=== PATIENT | female | born 1960 | race Caucasian/White ===

== ENCOUNTER 2019-08-07 08:12 | Emergency (ER) | payer OTHER, SELFPAY ==
[~2019-08-07] VITALS: Ht 157.5 cm; Wt 85.3 kg
[2019-08-07 08:26] VITALS: Ht 157.5 cm; Wt 85.3 kg
[2019-08-07 09:57] LABS: T3 TOTAL 0.98 ng/mL
[2019-08-07 10:02] LABS: FREE T4 0.77 ng/dL (0.76-1.46); FREE THYROXINE INDEX 2.1 ug/dL (1.4-4.5); T4(THYROXINE) 6.4 ug/dL (4.7-13.3)
[2019-08-07 10:20] LABS: BASOPHIL % 0.6 % (0-2); PLATELET COUNT 222 x10^3mcL (130-400)
[2019-08-07 10:26] LABS: RED CELL DISTRIBUTION WIDTH 14.7 % (11.5-14.5)
[2019-08-07 10:38] LABS: CALCIUM 8.9 mg/dL (8.5-10.1); CARBON DIOXIDE 24.7 mmol/L (21-32); CHLORIDE SERUM 108 mmol/L (98-107); CREATININE SERUM 0.8 mg/dL (0.6-1.0); GFR1 > 60 mL/min; GLUCOSE SERUM 111 mg/dL (74-106); POTASSIUM SERUM 3.8 mmol/L (3.5-5.1); SODIUM SERUM 144 mmol/L (136-145)
[2019-08-07 10:42] LABS: ALBUMIN 3.6 g/dL (3.4-5.0); ALKALINE PHOSPHATASE 93 U/L (46-116); ALT/SGPT 22 U/L (14-59); AST/SGOT 17 U/L (15-37); BILIRUBIN TOTAL 0.32 mg/dL (0.20-1.00); HDL CHOLESTEROL 35 mg/dL (40-60); LIPASE 116 IU/L (73-393); TOTAL PROTEIN, SERUM 7.1 g/dL (6.4-8.2); TRIGLYCERIDES 113 mg/dL (<150)
[2019-08-07 10:48] LABS: CHOLESTEROL 133 mg/dL (<200); CHOLESTEROL/HDL RATIO 3.8
[2019-08-07 10:53] VITALS: BP 124/77
== END 2019-08-07 10:53 | disposition home or self-care (01) ==
LOC: ED 08:12
PROVIDERS: Specialist
DX: R07.89 Other chest pain (principal); E03.9 Hypothyroidism, unspecified; G89.29 Other chronic pain; H92.01 Otalgia, right ear; R68.84 Jaw pain
CPT/HCPCS: 36415; 83880; 84439; J7030; Q0092